=== PATIENT | female | born 1970 | race Hispanic/Latino ===

== ENCOUNTER 2018-07-31 06:46 | Emergency (ER) | payer BC, SELFPAY ==
[2018-07-31] MEDS ORDERED: NA CHLORIDE 0.9% 1,000 ML ONE (07:38)
[2018-07-31] MEDS ORDERED: ACETAMINOPHEN 500 MG TAB ONE (07:38)
[2018-07-31 07:52] LABS: Absolute Lymphocytes (CBC) 2.7 K/uL (0.7-4.9); Absolute Monocytes 0.6 K/uL (0.1-1.3); Absolute Neutrophil 2.8 K/uL (1.8-8.0); Eosinophils % 3.5 % (0-4.4); Hematocrit 41.7 % (36.0-45.0); Lymphocytes % 42.1 % (15.3-44.8); MPV 9.1 fL (7.6-11.3); Monocytes % 8.8 % (3.3-12.3); RBC Red Blood Cell Count 4.81 M/uL (3.86-4.86)
[2018-07-31 08:14] LABS: ALT/SGPT 31 U/L (12-78); AST/SGOT 26 U/L (15-37); Alkaline Phosphatase 117 U/L (45-117); BUN Blood Urea Nitrogen 11 mg/dL (7-18); Bicarbonate 29 mmol/L (21-32); Bilirubin Direct 0.1 mg/dL (0-0.2); Bilirubin Total 0.3 mg/dL (0.2-1.0); Glucose Level 87 mg/dL (74-106); Magnesium 2.5 mg/dL (1.8-2.4); Potassium 3.3 mmol/L (3.5-5.1); Protein, Total 7.9 g/dL (6.4-8.2); Sodium Level 140 mmol/L (136-145); Troponin (Emerg Dept Use Only) < 0.02 ng/mL (0.0-0.045)
--- NOTE | 2018-07-31 08:14 | RAD REPORT ---
EXAM DESCRIPTION: CT - Head Brain Wo Cont - 07/31/2018 7:48 am CLINICAL HISTORY: Blurred vision COMPARISON: None. TECHNIQUE: Computed axial tomography of the head was obtained. IV contrast was not requested. All CT scans are performed using dose optimization technique as appropriate and may include automated exposure control or mA/KV adjustment according to patient size. FINDINGS: An intracranial bleed is not seen . The ventricles are normal in caliber. No extra-axial fluid collection is noted. Fluid within the sinuses/ mastoids is not seen. IMPRESSION: No acute intracranial abnormality is seen. If patient's symptoms persist MRI of the bra in would be recommended.
--- NOTE | 2018-07-31 08:50 | ER ---
Nurse's Notes [facility] Name: Muna Aquino Age: 48 yrs Sex: Female : 1970 Arrival Date: 07/31/2018 Time: 06:48 Bed 15 Private MD: Diagnosis: Elevated blood-pressure reading, without diagnosis of hypertension;Visual disturbances Presentation: 07/31 06:59 Presenting complaint: Patient states: Pt reports blurred vision that began this morning ss when she woke up at 0000 this morning. 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 then again 161/???. Transition of care: patient was not received from another setting of care. Onset of symptoms was July 31, 2018. Risk Assessment: Do you want to hurt yourself or someone else? Patient reports no desire to harm self or others. Initial Sepsis Screen: Does the patient meet any 2 criteria? No. Patient's initial sepsis screen is negative. Does the patient have a suspected source of infection? No. Patient's initial sepsis screen is negative. Care prior to arrival: None. 06:59 Method Of Arrival: Ambulatory ss 06:59 Acuity: ADELINE 3 ss Historical: - Allergies: 07:01 No Known Allergies; ss - Home Meds: 07:01 None [Active]; ss - PMHx: 07:01 None; ss - PSHx: 07:01 ; ss - Immunization history:: Adult Immunizations up to date. - Social history:: Smoking status: Patient/guardian denies using tobacco. - Ebola Screening: : Patient denies exposure to infectious person Patient denies travel to an Ebola-affected area in the 21 days before illness onset. Screenin:07 Abuse screen: Denies threats or abuse. Denies injuries from another. Nutritional ph screening: No deficits noted. Tuberculosis screening: No symptoms or risk factors identified. Fall Risk None identified. Assessment: 07:50 General: Appears in no apparent distress. comfortable, slender, well groomed, Behavior ph is calm, cooperative, appropriate for age, Denies fever, feeling ill. Pain: Complains of pain in top of head. Neuro: Level of Consciousness is awake, alert, obeys commands, Oriented to person, place, time, situation, Gis Analyst are equal bilaterally Moves all extremities. Full function Gait is steady, Speech is normal, Facial symmetry appears normal, Facial symmetry: tongue is midline, Pupils are PERRLA, Intact Reports blurred vision headache in top of head Denies dizziness, photophobia. Cardiovascular: Capillary refill < 3 seconds in bilateral fingers Patient's skin is warm and dry. Respiratory: Airway is patent Respiratory effort is even, unlabored, Respiratory pattern is regular, symmetrical. GI: No signs and/or symptoms were reported involving the gastrointestinal system. Patient currently denies abdominal pain, nausea, vomiting. Derm: Skin is intact, is healthy with good turgor, Skin is pink, warm \T\ dry. Musculoskeletal: Circulation, motion, and sensation intact. Range of motion: intact in all extremities. 09:11 Reassessment: Patient appears in no apparent distress at this time. Patient and/or ph family updated on plan of care and expected duration. Pain level reassessed. Patient is alert, oriented x 3, equal unlabored respirations, skin warm/dry/pink. Patient denies pain at this time. Patient states feeling better. Patient states symptoms have improved. Vital Signs: 07:01 BP 180 / 101; Pulse 70; Resp 15; Temp 98.4(TE); Pulse Ox 99% on R/A; Weight 63.5 kg; ss Height 5 ft. 2 in. (157.48 cm); Pain 0/10; 07:50 BP 141 / 101; Pulse 68; Resp 18; Pulse Ox 98% on R/A; ph 08:12 BP 157 / 99; Pulse 67; Resp 18; Pulse Ox 99% on R/A; ph 09:12 BP 122 / 86; Pulse 67; Resp 18; Temp 97.9; Pulse Ox 98% on R/A; ph 07:01 Body Mass Index 25.61 (63.50 kg, 157.48 cm) Vitals: 07:50 Cardiac Rhythm Assessment Sinus rhythm. ED Course: 06:48 Patient arrived in ED. am2 07:01 Triage completed. ss 07:01 Arm band placed on right wrist. ss 07:05 Dwayne Castaneda PA is PHCP. cp 07:05 Dwayne Christianson MD is Attending Physician. cp 07:10 Letty Mcneill RN is Primary Nurse. ph 07:36 Adam Simons MD is Attending Physician. cp 07:43 Initial lab(s) drawn, by me, sent to lab. Inserted saline lock: 20 gauge in right ph antecubital area, using aseptic technique. Blood collected. 07:45 CT completed. Patient tolerated procedure well. Patient moved to CT via wheelchair. Patient moved back from CT. 07:46 XRAY Chest (1 view) In Process Unspecified. EDMS 07:48 CT Head Brain wo Cont In Process Unspecified. EDMS 08:07 Patient has correct armband on for positive identification. Placed in gown. Bed in low ph position. Call light in reach. Side rails up X 1. hog stomach preparer on. Pulse ox on. NIBP on. Door closed. Noise minimized. Warm blanket given. 09:31 No provider procedures requiring assistance completed. IV discontinued, intact, ph bleeding controlled, No redness/swelling at site. Pressure dressing applied. Administered Medications: 07:42 Drug: Tylenol 1000 mg Route: PO; ph 09:29 Follow up: Response: No adverse reaction; Pain is decreased ph 09:28 Drug: Aspirin Chewable Tablet 81 mg Route: PO; ph 09:29 Follow up: Response: No adverse reaction ph 09:30 Not Given (Other Intervention Used): NS 0.9% 1000 ml IV at 1 bolus Per protocol; 1000 ph mL bolus Outcome: 08:49 Discharge ordered by MD. cp 09:32 Discharged to home ambulatory, with significant other. ph 09:32 Condition: improved 09:32 Discharge instructions given to patient, Instructed on discharge instructions, follow up and referral plans. Demonstrated understanding of instructions, follow-up care. 09:32 Patient left the ED. ph Signatures: Dispatcher [employer] EDNY Romana Huitron RN RN Letty Mcneill RN RN Delia Gutierrez Corey, PA PA cp Moreno, Amanda am2 Corrections: (The following items were deleted from the chart) 07:47 07:34 Patient moved to [facility] 08:12 07:50 BP 157 / 99; Pulse 67bpm; Resp 18bpm; Pulse Ox 99% RA; ph ph
--- NOTE | 2018-07-31 08:51 | EDPHYS ---
Physician Documentation [facility] Name: Muna Aquino Age: 48 yrs Sex: Female : 1970 Arrival Date: 07/31/2018 Time: 06:48 Bed 15 Private MD: ED Physician Adam Simons HPI: 07/31 07:30 This 48 yrs old Female presents to ER via Ambulatory with complaints of High cp Blood Pressure, Blurred Vision, Doesn't Feel Right. 07:30 The patient has elevated blood pressure and discovered this at work. cp 07:30 Onset: The symptoms/episode began/occurred this morning. Patient reports she was at cp work this morning after working 12 hour shift and noticed she was having blurry vision, slight headache. Patient reports she checked her blood pressure at work and noticed it was elevated. Patient denies history of hypertension. Historical: - Allergies: 07:01 No Known Allergies; ss - Home Meds: 07:01 None [Active]; ss - PMHx: 07:01 None; ss - PSHx: 07:01 ; ss - Immunization history:: Adult Immunizations up to date. - Social history:: Smoking status: Patient/guardian denies using tobacco. - Ebola Screening: : Patient denies exposure to infectious person Patient denies travel to an Ebola-affected area in the 21 days before illness onset. ROS: 07:39 Constitutional: Negative for body aches, chills, fever, poor PO intake. cp 07:39 Eyes: Positive for blurry vision, Negative for discharge, pain, redness, vision loss. 07:39 ENT: Negative for drainage from ear(s), ear pain, sore throat, difficulty swallowing, difficulty handling secretions. 07:39 Cardiovascular: Negative for chest pain, edema, palpitations. 07:39 Respiratory: Negative for cough, shortness of breath, wheezing. 07:39 Abdomen/GI: Negative for abdominal pain, vomiting, diarrhea, constipation, black/tarry stool, rectal bleeding. 07:39 Back: Negative for pain at rest, pain with movement, radiated pain. 07:39 Skin: Negative for cellulitis, rash. 07:39 Neuro: Positive for headache, Negative for altered mental status, dizziness, gait disturbance, speech changes, weakness. 07:39 All other systems are negative. Exam: 07:44 Constitutional: The patient appears in no acute distress, alert, awake, cp non-diaphoretic, non-toxic, well developed, well nourished. 07:44 Head/Face: Normocephalic, atraumatic. Eyes: Pupils equal round and reactive to light, cp extra-ocular motions intact. Lids and lashes normal. Conjunctiva and sclera are non-icteric and not injected. Cornea within normal limits. Periorbital areas with no swelling, redness, or edema. ENT: Nares patent. No nasal discharge, no septal abnormalities noted. Tympanic membranes are normal and external auditory canals are clear. Oropharynx with no redness, swelling, or masses, exudates, or evidence of obstruction, uvula midline. Mucous membranes moist. Chest/axilla: Normal chest wall appearance and motion. Nontender with no deformity. No lesions are appreciated. Cardiovascular: Regular rate and rhythm with a normal S1 and S2. No gallops, murmurs, or rubs. Normal PMI, no JVD. No pulse deficits. Respiratory: Lungs have equal breath sounds bilaterally, clear to auscultation and percussion. No rales, rhonchi or wheezes noted. No increased work of breathing, no retractions or nasal flaring. Abdomen/GI: Soft, non-tender, with normal bowel sounds. No distension or tympany. No guarding or rebound. No evidence of tenderness throughout. Neuro: Awake and alert, GCS 15, oriented to person, place, time, and situation. Cranial nerves II-XII grossly intact. Motor strength 5/5 in all extremities. Sensory grossly intact. Cerebellar exam normal. Normal gait. 07:44 Musculoskeletal/extremity: Exam is negative for calf tenderness, decreased range of motion, edema, Extremities: all appear grossly normal, with no appreciated pain with palpation. 07:44 Skin: no rash present. 08:15 ECG was reviewed by the Attending Physician. cp Vital Signs: 07:01 BP 180 / 101; Pulse 70; Resp 15; Temp 98.4(TE); Pulse Ox 99% on R/A; Weight 63.5 kg; ss Height 5 ft. 2 in. (157.48 cm); Pain 0/10; 07:50 BP 141 / 101; Pulse 68; Resp 18; Pulse Ox 98% on R/A; ph 08:12 BP 157 / 99; Pulse 67; Resp 18; Pulse Ox 99% on R/A; ph 09:12 BP 122 / 86; Pulse 67; Resp 18; Temp 97.9; Pulse Ox 98% on R/A; ph 07:01 Body Mass Index 25.61 (63.50 kg, 157.48 cm) ss MDM: 07:08 Patient medically screened. cp 07:30 Differential diagnosis: hypertensive crisis, Malignant HTN, CVA, intracerebral cp hemorrhage. 08:47 Data reviewed: vital signs, nurses notes, lab test result(s), EKG, radiologic studies, cp CT scan, plain films. 08:47 Test interpretation: by ED physician or midlevel provider: ECG. cp 08:47 Counseling: I had a detailed discussion with the patient and/or guardian regarding: the cp historical points, exam findings, and any diagnostic results supporting the discharge/admit diagnosis, the presence of at least one elevated blood pressure reading (>120/80) during this emergency department visit, lab results, radiology results, the need for outpatient follow up, a family practitioner, to return to the emergency department if symptoms worsen or persist or if there are any questions or concerns that arise at home. 08:47 Response to treatment: the patient's symptoms have markedly improved after treatment, cp VSS. Blood pressure markedly improved. Will discharge to home for continued monitoring. 07/31 07:18 Order name: Basic Metabolic Panel; Complete Time: 08:18 07/31 08:18 Interpretation: Normal except: K 3.3; GFR 88. 07/31 07:18 Order name: CBC with Diff; Complete Time: 08:18 07/31 07:18 Order name: LFT's; Complete Time: 08:18 07/31 07:18 Order name: Magnesium; Complete Time: 08:18 07/31 08:18 Interpretation: MG 2.5; Reviewed. 07/31 07:18 Order name: Troponin (emerg Dept Use Only); Complete Time: 08:18 07/31 07:18 Order name: XRAY Chest (1 view); Complete Time: 09:12 07/31 09:13 Interpretation: Report review. 07/31 07:18 Order name: EKG; Complete Time: 07:38 07/31 07:18 Order name: Cardiac monitoring; Complete Time: 07:42 07/31 07:18 Order name: EKG - Nurse/Tech; Complete Time: 09:30 cp 07/31 07:18 Order name: IV Saline Lock; Complete Time: 07:42 cp 07/31 07:18 Order name: CT Head Brain wo Cont; Complete Time: 08:18 cp 07/31 08:18 Interpretation: Report reviewed. cp 07/31 07:18 Order name: Labs collected and sent; Complete Time: 07:42 cp 07/31 07:18 Order name: O2 Per Protocol; Complete Time: 07:42 cp 07/31 07:18 Order name: O2 Sat Monitoring; Complete Time: 07:43 cp EC:15 Rate is 63 beats/min. Rhythm is regular. TX interval is normal. QRS interval is normal. cp QT interval is normal. T waves are Flattened in lead aVL. Interpreted by me. Reviewed by me. Administered Medications: 07:42 Drug: Tylenol 1000 mg Route: PO; ph 09:29 Follow up: Response: No adverse reaction; Pain is decreased ph 09:28 Drug: Aspirin Chewable Tablet 81 mg Route: PO; ph 09:29 Follow up: Response: No adverse reaction ph 09:30 Not Given (Other Intervention Used): NS 0.9% 1000 ml IV at 1 bolus Per protocol; 1000 ph mL bolus Disposition: 09:45 Chart complete. cp 16:24 Co-signature as Attending Physician, Adam Simons MD I agree with the assessment and kdr plan of care. Disposition: 07/31/18 08:49 Discharged to Home. Impression: Elevated blood-pressure reading, without diagnosis of hypertension, Visual disturbances. - Condition is Stable. - Discharge Instructions: How to Take Your Blood Pressure, [id number], Aspirin and Your Heart, DASH Eating Plan, Form - Blood Pressure Record Sheet. - Family Work Release, Medication Reconciliation Form, Thank You Letter, Antibiotic Education, Prescription Opioid Use form. - Follow up: Private Physician; When: 2 - 3 days; Reason: Recheck today's complaints. - Problem is new. - Symptoms have improved. Signatures: Dispatcher [employer] EDNC Adam Simons MD MD [facility] Romana Huitron RN RN Letty Mcneill RN RN ph Tonya, MESHA Rice PA cp Corrections: (The following items were deleted from the chart) 07:32 07:32 This 48 yrs old Female presents to ER via Ambulatory with complaints of cp High Blood Pressure, Blurred Vision, Doesn't Feel Right. cp 09:32 08:49 07/31/2018 08:49 Discharged to Home. Impression: Elevated blood-pressure reading, ph without diagnosis of hypertension; Visual disturbances. Condition is Stable. Forms are Medication Reconciliation Form, Thank You Letter, Antibiotic Education, Prescription Opioid Use. Follow up: Private Physician; When: 2 - 3 days; Reason: Recheck today's complaints. Problem is new. Symptoms have improved. cp
--- NOTE | 2018-07-31 09:08 | RAD REPORT ---
EXAM DESCRIPTION: Jerry Single View07/31/2018 7:46 am CLINICAL HISTORY: Hypertension COMPARISON: none FINDINGS: The lungs appear clear of acute infiltrate. The heart is normal size IMPRESSION: No acute abnormalities displayed
[2018-07-31] MEDS ORDERED: ASPIRIN 81 MG CHEWABLE TABLET ONE (09:33)
--- NOTE | 2018-07-31 10:42 | EKG ---
Test Date: 2018-07-31 Test Time: 08:00:24 Supervisor Reclamation: MARK MEASUREMENT RESULTS: Intervals: Rate: 63 AK: 156 QRSD: 76 QT: 426 QTc: 435 Velma: P: 68 AK: 156 QRS: 64 T: 55 INTERPRETIVE STATEMENTS: Normal sinus rhythm Normal ECG No previous ECG available for comparison Electronically Signed On 07-31-18 10:41:57 CDT by Marcial Valdez
== END 2018-07-31 09:32 | disposition home or self-care (01) ==
LOC: ER 06:46
DX: R03.0 Elevated blood-pressure reading, without diagnosis of hypertension (principal); H53.9 Unspecified visual disturbance
CPT/HCPCS: 36415; 70450; 71045; 80048; 80076; 83735; 84484; 85025; 93005; 99285; J7030

== ENCOUNTER 2018-08-01 13:51 | Emergency (ER) | payer BC ==
[2018-08-01] MEDS ORDERED: DEXAMETHASONE 10 MG/ML VIAL ONE (16:33)
[2018-08-01] MEDS ORDERED: METOCLOPRAMIDE 10 MG/2mL INJ ONE (16:33)
[2018-08-01] MEDS ORDERED: DIPHENHYDRAMINE 50 MG/ML VIAL ONE (16:33)
[2018-08-01] MEDS ORDERED: NA CHLORIDE 0.9% 250 ML ONE (16:34)
--- NOTE | 2018-08-01 17:20 | ER ---
Nurse's Notes [facility] Name: Muna Aquino Age: 48 yrs Sex: Female : 1970 Arrival Date: 08/01/2018 Time: 13:51 Bed 25 Private MD: Diagnosis: Headache Presentation: 08/01 14:09 Presenting complaint: Headache and elevated blood pressure today. Home SBP 160. hb Transition of care: patient was not received from another setting of care. Onset of symptoms was August 01, 2018. Risk Assessment: Do you want to hurt yourself or someone else? Patient reports no desire to harm self or others. Care prior to arrival: None. 14:09 Method Of Arrival: Ambulatory hb 14:09 Acuity: ADELINE 3 hb 15:40 Initial Sepsis Screen: Does the patient meet any 2 criteria? No. Patient's initial ca1 sepsis screen is negative. Does the patient have a suspected source of infection? No. Patient's initial sepsis screen is negative. DIRECTOR OF MEDICAL STAFF SERVICES: 15:40 LMP N/A - Hysterectomy ca1 Historical: - Allergies: 14:10 No Known Allergies; hb - Home Meds: 14:10 None [Active]; hb - PMHx: 14:10 None; hb - PSHx: 14:10 ; hb - Immunization history:: Adult Immunizations up to date. - Social history:: Smoking status: Patient/guardian denies using tobacco. - Ebola Screening: : No symptoms or risks identified at this time. Screenin:40 Abuse screen: Denies threats or abuse. Denies injuries from another. Nutritional ca1 screening: No deficits noted. Tuberculosis screening: No symptoms or risk factors identified. Fall Risk None identified. Assessment: 15:40 General: Appears in no apparent distress. comfortable, Behavior is calm, cooperative, ca1 appropriate for age. Pain: Denies pain. Neuro: Level of Consciousness is awake, alert, obeys commands, Oriented to person, place, time, situation, Reports headache since since yesterday but not at this time. Cardiovascular: Heart tones S1 S2 present Capillary refill < 3 seconds Patient's skin is warm and dry. Respiratory: Airway is patent Respiratory effort is even, unlabored, Respiratory pattern is regular, symmetrical, Breath sounds are clear bilaterally. GI: Abdomen is flat, non-distended, Bowel sounds present X 4 quads. Abd is soft and non tender X 4 quads. : No deficits noted. No signs and/or symptoms were reported regarding the genitourinary system. EENT: No deficits noted. No signs and/or symptoms were reported regarding the EENT system. Derm: Skin is intact, is healthy with good turgor, Skin is pink, warm \T\ dry. Musculoskeletal: Circulation, motion, and sensation intact. Capillary refill < 3 seconds. 16:39 Reassessment: Patient appears in no apparent distress at this time. Patient and/or ca1 family updated on plan of care and expected duration. Pain level reassessed. Patient is alert, oriented x 3, equal unlabored respirations, skin warm/dry/pink. Vital Signs: 14:09 BP 152 / 97; Pulse 84; Resp 16; Temp 98; Pulse Ox 100% ; Pain 5/10; hb 15:40 BP 135 / 85; Pulse 64; Resp 18 S; Pulse Ox 99% on R/A; ca1 16:39 BP 134 / 104; Pulse 70; Resp 19 S; Pulse Ox 100% on R/A; ca1 17:10 BP 124 / 79; Pulse 57; Resp 19 S; Pulse Ox 100% on R/A; ca1 ED Course: 13:51 Patient arrived in ED. tw3 14:10 Triage completed. hb 14:10 Arm band placed on. hb 15:37 Lavon Alvarez PA is PHCP. jmm 15:37 Andres Singh MD is Attending Physician. jmm 15:39 Sachi Christian, KALINA is Primary Nurse. ca1 15:40 Patient has correct armband on for positive identification. Placed in gown. Bed in low ca1 position. Call light in reach. Side rails up X 1. Pulse ox on. NIBP on. Warm blanket given. 16:18 Inserted saline lock: 22 gauge in left antecubital area, using aseptic technique. ca1 16:18 No provider procedures requiring assistance completed. ca1 17:20 Braydon Unger MD is Referral Physician. jmm 17:50 IV discontinued, intact, bleeding controlled, No redness/swelling at site. Pressure ca1 dressing applied. Administered Medications: 06:23 Drug: Decadron - Dexamethasone 10 mg Route: IVP; Site: left antecubital; ca1 16:20 Drug: Reglan 10 mg Route: IVP; Site: left antecubital; ca1 16:20 Drug: NS 0.9% 250 ml Route: IV; Rate: bolus; Site: left antecubital; ca1 16:33 Drug: diphenhydrAMINE 12.5 mg Route: IVP; Site: left antecubital; ca1 Outcome: 17:20 Discharge ordered by MD. walker 17:51 Discharged to home ambulatory, with family. ca1 17:51 Condition: stable 17:51 Discharge instructions given to patient, Instructed on discharge instructions, follow up and referral plans. Demonstrated understanding of instructions, follow-up care. 17:51 Patient left the ED. ca1 Signatures: Lavon Alvarez PA PA jmm Baxter, Heather, KALINA RN Jeanette Bo tw3 Sachi Christian RN RN ca1
--- NOTE | 2018-08-01 17:20 | EDPHYS ---
Physician Documentation [facility] Name: Muna Aquino Age: 48 yrs Sex: Female : 1970 Arrival Date: 08/01/2018 Time: 13:51 Bed 25 Private MD: ED Physician Andres Singh HPI: 08/01 15:54 This 48 yrs old Female presents to ER via Ambulatory with complaints of High jmm Blood Pressure. 15:54 Onset: The symptoms/episode began/occurred gradually, 1 day(s) ago. Associated signs jmm and symptoms: Pertinent positives: headache, visual changes. This is a 48 year old female with no chronic medical conditions that presents to the ED with complaints of headache, blurred vision beginning yesterday. Patient was evaluated in the ED with negative studies. Patient is concerned because headache continues. Patient states headache was worsen yesterday. Headache was gradual onset yesterday. Patient denies chest pain, denies shortness of breath. . DIRECTOR SOCIAL WELFARE: 15:40 LMP N/A - Hysterectomy ca1 Historical: - Allergies: 14:10 No Known Allergies; hb - Home Meds: 14:10 None [Active]; hb - PMHx: 14:10 None; hb - PSHx: 14:10 ; hb - Immunization history:: Adult Immunizations up to date. - Social history:: Smoking status: Patient/guardian denies using tobacco. - Ebola Screening: : No symptoms or risks identified at this time. ROS: 15:54 Constitutional: Negative for fever, chills, and weight loss, Cardiovascular: Negative jmm for chest pain, palpitations, and edema, Respiratory: Negative for shortness of breath, cough, wheezing, and pleuritic chest pain. 15:54 Neuro: Positive for headache, visual changes. 15:54 All other systems are negative. Exam: 15:54 Constitutional: This is a well developed, well nourished patient who is awake, alert, jmm and in no acute distress. Head/Face: atraumatic. Eyes: EOMI, no conjunctival erythema appreciated ENT: Moist Mucus Membranes Neck: Trachea midline, Supple Chest/axilla: Normal chest wall appearance and motion. Cardiovascular: Regular rate and rhythm. No edema appreciated Respiratory: Normal respirations, no respiratory distress appreciated Abdomen/GI: Non distended, soft Back: Normal ROM Skin: General appearance color normal MS/ Extremity: Moves all extremities, no obvious deformities appreciated, no edema noted to the lower extremities 15:54 Neuro: Orientation: is normal, Mentation: is normal, Memory: is normal, appropriate for stated age, Gait: is steady. 15:54 Psych: Behavior/mood is pleasant, cooperative. Vital Signs: 14:09 BP 152 / 97; Pulse 84; Resp 16; Temp 98; Pulse Ox 100% ; Pain 5/10; hb 15:40 BP 135 / 85; Pulse 64; Resp 18 S; Pulse Ox 99% on R/A; ca1 16:39 BP 134 / 104; Pulse 70; Resp 19 S; Pulse Ox 100% on R/A; ca1 17:10 BP 124 / 79; Pulse 57; Resp 19 S; Pulse Ox 100% on R/A; ca1 MDM: 15:54 Patient medically screened. [facility] 17:19 Data reviewed: vital signs, nurses notes. Counseling: I had a detailed discussion with laura the patient and/or guardian regarding: the historical points, exam findings, and any diagnostic results supporting the discharge/admit diagnosis, the need for outpatient follow up, to return to the emergency department if symptoms worsen or persist or if there are any questions or concerns that arise at home. 17:19 ED course: Patient states that she feels much better and headache has almost completely jmm resolved in the ED. Character of headache does not appear consistent with SAH. patient is afebrile and non toxic in appearance. i do not suspect meningitis. patient is advised to follow up with neurology and otherwise given strict return precautions. patient understood and agrees with the plan of care. . 08/01 16:10 Order name: Saline Lock; Complete Time: 16:33 [facility] Administered Medications: 06:23 Drug: Decadron - Dexamethasone 10 mg Route: IVP; Site: left antecubital; ca1 16:20 Drug: Reglan 10 mg Route: IVP; Site: left antecubital; ca1 16:20 Drug: NS 0.9% 250 ml Route: IV; Rate: bolus; Site: left antecubital; ca1 16:33 Drug: diphenhydrAMINE 12.5 mg Route: IVP; Site: left antecubital; ca1 Disposition: 19:06 Co-signature as Attending Physician, Andres Singh MD. rn Disposition: 08/01/18 17:20 Discharged to Home. Impression: Headache. - Condition is Stable. - Discharge Instructions: Migraine Headache. - Medication Reconciliation Form, Thank You Letter, Antibiotic Education, Prescription Opioid Use form. - Follow up: Braydon Unger MD; When: 2 - 3 days; Reason: Recheck today's complaints, Continuance of care, Re-evaluation by your physician. Signatures: Lavon Alvarez PA PA jmm Nieto, Roman, MD MD rn Baxter, Heather, RN RN Sachi Christian RN RN ca1 Corrections: (The following items were deleted from the chart) 17:51 17:20 08/01/2018 17:20 Discharged to Home. Impression: Headache. Condition is Stable. ca1 Forms are Medication Reconciliation Form, Thank You Letter, Antibiotic Education, Prescription Opioid Use. Follow up: Braydon Unger; When: 2 - 3 days; Reason: Recheck today's complaints, Continuance of care, Re-evaluation by your physician. aaron
== END 2018-08-01 17:51 | disposition home or self-care (01) ==
LOC: ER 13:51
DX: R51 Headache (principal)
CPT/HCPCS: 96374; 96375; 99284; J1100; J2765

== ENCOUNTER 2023-01-13 01:00 | Emergency (ER) | payer BC, SELFPAY ==
--- OUTSIDE RECORDS SUMMARY | 2023-01-13 01:03 | XMS REPORT | Continuity of Care Document ---
:1970 Author Organization [facility] t Address [address] [place] [address] [place] [id number] Care Team Providers Name Role Phone Chapito Vu Attending Clinician Lab, [facility] Fam Pob I Attending Clinician Unavailable CHAPITO ROSS Attending Clinician Unavailable Problems This patient has no known problems. Allergies, Adverse Reactions, Alerts Allergy Allergy Status Severity Reaction(s) Onset Inactive Treating Comm ents Source Name Type Date Date Clinician NO KNOWN Drug [facility] Social History Social Habit Start Date Stop Date Quantity Comments [facility] Smoking Status Start Date Stop Date Source Unknown if ever smoked [facility] Medications This patient has no known medications. Procedures This patient has no known procedures. Encounters Start End Encounter Admission Attending Care Care Encounter Source Date/Time Date/Time Type Type Clinicians Facility Department ID 2019-10-28 2019-10-28 Telephone Vandana [facility] [id number] Univers 00:00:00 00:00:00 [facility] [id number] [facility] [place] [id number] [facility] [phone] [address] Office [address] 2019-10-27 2019-10-27 Laboratory Lab, Adc Fam Pob I [facility] [id number] [facility] 13:44:59 14:04:59 Only Chapito [facility] [id number] [facility] [place] [id number] [facility] [phone] [address] 2019-10-27 2019-10-27 Outpatient R VANDANA [facility] [id number] Univers 14:00:00 14:00:00 [facility] Results This patient has no known results.
[2023-01-13] MEDS ORDERED: LIDOCAINE 1% MPF 30 ML VIAL ONE (02:54)
[2023-01-13] MEDS ORDERED: LIDOCAINE 1% MPF 5 ML VIAL ONE (02:55)
[2023-01-13] MEDS ORDERED: LIDOCAINE 1% 20 ML MDV ONE (02:57)
--- NOTE | 2023-01-13 03:39 | ER ---
Nurse's Notes [facility] Name: Muna Aquino Age: 52 yrs Sex: Female : 1970 Arrival Date: 01/13/2023 Time: 01:00 Bed 5 Private MD: Diagnosis: Laceration without foreign body of unspecified finger without damage to nail Presentation: 01/13 01:21 Chief complaint: Patient states: laceration to 4th digit on left hand. Pt states that cm10 she cut her finger on some glass. Pt states that this happened around 2300. Bleeding controlled at this time. Pt states last tetanus was in 2018. Coronavirus screen: Vaccine status: Patient reports receiving the 2nd dose of the covid vaccine. Client denies travel out of the [place] in the last 14 days. Ebola Screen: Patient denies travel to an Ebola-affected area in the 21 days before illness onset. No symptoms or risks identified at this time. Initial Sepsis Screen: Does the patient meet any 2 criteria? No. Patient's initial sepsis screen is negative. Does the patient have a suspected source of infection? No. Patient's initial sepsis screen is negative. Risk Assessment: Do you want to hurt yourself or someone else? Patient reports no desire to harm self or others. Onset of symptoms was January 13, 2023. 01:21 Method Of Arrival: Ambulatory cm10 01:21 Acuity: ADELINE 4 cm10 Triage Assessment: 01:24 General: Appears in no apparent distress. comfortable, Behavior is calm, cooperative. cm10 Pain: Complains of pain in dorsal aspect of proximal phalanx of left ring finger and palmar aspect of middle phalanx of left ring finger. Neuro: No deficits noted. Level of Consciousness is awake, alert, obeys commands, Oriented to person, place, time, situation. Respiratory: No deficits noted. Airway is patent Respiratory effort is even, unlabored, Respiratory pattern is regular, symmetrical. Injury Description: Laceration sustained to dorsal aspect of middle phalanx of left ring finger, palmar aspect of middle phalanx of left ring finger and palmar aspect of proximal phalanx of left ring finger is jagged, was sustained 1-2 hours ago. no active bleeding noted at this time. Historical: - Allergies: :23 No Known Allergies; cm10 - Home Meds: 01:23 None [Active]; cm10 - PMHx: 01:23 None; cm10 - PSHx: 01:23 None; cm10 - Immunization history:: Adult Immunizations up to date, Last tetanus immunization: < 5 years ago. - Social history:: Smoking status: Patient denies any tobacco usage or history of. Screenin:25 [facility] ED Fall Risk Assessment (Adult) History of falling in the last 3 months, cm10 including since admission No falls in past 3 months (0 pts) Confusion or Disorientation No (0 pts) Intoxicated or Sedated No (0 pts) Impaired Gait No (0 pts) Mobility Assist Device Used No (0 pt) Altered Elimination No (0 pt) Score/Fall Risk Level 0 - 2 = Low Risk Oriented to surroundings, Maintained a safe environment, Hourly rounding (assess needs \T\ fall precautionary measures) done. Abuse screen: Denies threats or abuse. Denies injuries from another. Nutritional screening: No deficits noted. Tuberculosis screening: No symptoms or risk factors identified. Never had TB. Assessment: 01:59 General: Appears in no apparent distress. comfortable, Behavior is calm, cooperative, jb4 appropriate for age. Pain: Complains of pain in palmar aspect of middle phalanx of left ring finger and palmar aspect of proximal phalanx of left ring finger Pain does not radiate. Pain currently is 4 out of 10 on a pain scale. Neuro: Level of Consciousness is awake, alert, obeys commands, Oriented to person, place, time, situation. Cardiovascular: Patient's skin is warm and dry. Respiratory: Airway is patent Respiratory effort is even, unlabored, Respiratory pattern is regular, symmetrical. GI: No signs and/or symptoms were reported involving the gastrointestinal system. : EENT: No signs and/or symptoms were reported regarding the EENT system. Derm: Skin is pink, warm \T\ dry. Musculoskeletal: Circulation, motion, and sensation intact. Range of motion: intact in all extremities. 02:43 Reassessment: Patient appears in no apparent distress at this time. Patient and/or jb4 family updated on plan of care and expected duration. Pain level reassessed. Patient is alert, oriented x 3, equal unlabored respirations, skin warm/dry/pink. 04:04 Reassessment: Patient appears in no apparent distress at this time. Patient and/or jb4 family updated on plan of care and expected duration. Pain level reassessed. Patient is alert, oriented x 3, equal unlabored respirations, skin warm/dry/pink. Vital Signs: 01:21 BP 143 / 95; Pulse 85; Resp 18 S; Temp 97; Pulse Ox 98% on R/A; Weight 63.5 kg; Height cm10 5 ft. 1 in. ; Pain 4/10; 01:21 Body Mass Index 26.45 (63.50 kg, 154.94 cm) cm10 01:21 Pain Scale: Adult cm10 ED Course: 01:03 Patient arrived in ED. ag3 01:23 Triage completed. cm10 01:25 Arm band placed on. cm10 01:26 Wander Llanes DO is Attending Physician. ms3 01:59 Pranay Marcos, RN is Primary Nurse. jb4 02:00 Hand Left 3 View XRAY In Process Unspecified. EDMS 03:37 Reyes Aguilar DO is Referral Physician. ms3 04:04 Patient has correct armband on for positive identification. Bed in low position. Call jb4 light in reach. Side rails up X 1. Client placed on continuous cardiac and pulse oximetry monitoring. NIBP monitoring applied. 04:04 No provider procedures requiring assistance completed. Patient did not have IV access jb4 during this emergency room visit. Administered Medications: 03:15 Drug: Lidocaine Infiltration (1 %) 10 ml 20 ml Infiltration once; to bedside {Note: jb4 administered by ER physician..} Volume: 20 ml; Route: Infiltration; Medication: 04:04 VIS not applicable for this client. jb4 Outcome: 03:39 Discharge ordered by . ms3 04:04 Discharged to home ambulatory, jb4 04:04 Condition: stable 04:04 Discharge instructions given to patient, Instructed on discharge instructions, follow up and referral plans. Demonstrated understanding of instructions, follow-up care, 04:05 Patient left the ED. jb4 Signatures: Dispatcher [employer] EDMS Pranay Marcos, RN RN jb4 Lilia Kimball ag3 Wander Llanes DO DO ms3 Dea Townsend RN RN cm10 Corrections: (The following items were deleted from the chart) 01:24 01:23 Allergies: Aspirin; cm10 cm10
--- NOTE | 2023-01-13 03:39 | EDPHYS ---
Physician Documentation [facility] Name: Muna Aquino Age: 52 yrs Sex: Female : 1970 Arrival Date: 01/13/2023 Time: 01:00 Bed 5 Private MD: ED Physician Wander Llanes HPI: 01/13 02:51 This 52 yrs old Female presents to ER via Ambulatory with complaints of ms3 LACERATION TO FINGER. 02:51 52-year-old female with no past medical history presents for left ring finger ms3 laceration that occurred 2 hours prior to arrival. Patient states she cut her finger on a glass bottle while trying to leave a house. Patient states her discomfort is a 4/10. Patient denies any alleviating or inciting factors. Patient states her last tetanus shot was in 2019.. Historical: - Allergies: : No Known Allergies; cm10 - Home Meds: : None [Active]; cm10 - PMHx: : None; cm10 - PSHx: :23 None; cm10 - Immunization history:: Adult Immunizations up to date, Last tetanus immunization: < 5 years ago. - Social history:: Smoking status: Patient denies any tobacco usage or history of. ROS: 02:51 Constitutional: Negative for fever, and chills. ENT: Negative for injury, pain, and ms3 discharge, Cardiovascular: Negative for chest pain, and palpitations. Respiratory: Negative for shortness of breath, cough, wheezing, and pleuritic chest pain, Abdomen/GI: Negative for abdominal pain, nausea, vomiting, diarrhea, and constipation, MS/Extremity: Negative for injury and deformity, 02:51 Skin: Positive for laceration(s), of the dorsal aspect of middle phalanx of left ring finger, 02:51 All other systems are negative, Exam: 02:51 Constitutional: This is a well developed, well nourished patient who is awake, alert, ms3 and in no acute distress. Head/Face: Normocephalic, atraumatic. Neck: Trachea midline, no cervical lymphadenopathy. Supple, full range of motion without nuchal rigidity, or vertebral point tenderness. No Meningismus. Chest/axilla: Normal chest wall appearance and motion. Nontender with no deformity. Cardiovascular: Regular rate and rhythm with a normal S1 and S2. No gallops, murmurs, or rubs. Normal PMI, no JVD. No pulse deficits. Respiratory: Lungs have equal breath sounds bilaterally, clear to auscultation and percussion. No rales, rhonchi or wheezes noted. No increased work of breathing, no retractions or nasal flaring. Abdomen/GI: Soft, non-tender, with normal bowel sounds. No distension or tympany. No guarding or rebound. No evidence of tenderness throughout. 02:51 Skin: injury, laceration(s), the wound is approximately 3 cm(s), of the palmar aspect of proximal phalanx of left ring finger, the second wound is approximately 4 cm(s), of the dorsal aspect of middle phalanx of left ring finger, Vital Signs: 01:21 BP 143 / 95; Pulse 85; Resp 18 S; Temp 97; Pulse Ox 98% on R/A; Weight 63.5 kg; Height cm10 5 ft. 1 in. ; Pain 10; 01:21 Body Mass Index 26.45 (63.50 kg, 154.94 cm) cm10 01:21 Pain Scale: Adult cm10 Laceration: 03:42 Wound Repair of 3cm ( 1.2in ) subcutaneous laceration to palmar aspect of proximal ms3 phalanx of left ring finger. Distal neuro/vascular/tendon intact. Anesthesia: Digital block administered with 4 mls of 1% lidocaine. Wound prep: Simple cleansing by me. Skin closed with 3 5-0 Prolene using simple sutures and sterile technique. Dressed with Bacitracin. Patient tolerated well. 03:42 Wound Repair of 4cm ( 1.6in ) subcutaneous laceration to dorsal aspect of middle ms3 phalanx of left ring finger. Irregularly shaped.. Distal neuro/vascular/tendon intact. Anesthesia: Digital block administered with 4 mls of 1% lidocaine. Wound prep: Simple cleansing by me. Skin closed with 5 5-0 Prolene using interrupted sutures. Dressed with Bacitracin. Patient tolerated well. MDM: 01:36 Patient medically screened. ms3 02:40 Independent interpretation of the following test(s) in the Emergency Department X-Ray: ms3 My interpretation is Left hand x-rays reviewed by me do not reveal ROFB. 02:51 Differential diagnosis: Laceration versus retained radiopaque foreign body. ms3 03:42 Data reviewed: vital signs, nurses notes, radiologic studies, and as a result, I will ms3 discharge patient. Counseling: I had a detailed discussion with the patient and/or guardian regarding the historical points, exam findings, and any diagnostic results supporting the discharge/admit diagnosis, radiology results, the need for outpatient follow up, to return to the emergency department if symptoms worsen or persist or if there are any questions or concerns that arise at home. Response to treatment: the patient's symptoms have markedly improved after treatment, and as a result, I will discharge patient. ED course: Patient's laceration sutured without complications. Patient to follow-up with primary care physician in 7 to 10 days for suture removal. Patient understands and agrees with plan. All questions were answered. Return precautions discussed include worsening symptoms, drainage, swelling, erythema, or any other concerns.. 01/13 01:37 Order name: Hand Left 3 View XRAY ms3 01/13 02:41 Order name: Dressing - Wound; Complete Time: 03:37 ms3 01/13 02:41 Order name: Gloves, Sterile; Complete Time: 02:47 ms3 01/13 02:41 Order name: Prolene, Sutures: 5-0; Complete Time: 02:47 ms3 01/13 02:41 Order name: Setup Suture Tray; Complete Time: 02:47 ms3 Administered Medications: 03:15 Drug: Lidocaine Infiltration (1 %) 10 ml 20 ml Infiltration once; to bedside {Note: jb4 administered by ER physician..} Volume: 20 ml; Route: Infiltration; Disposition Summary: 01/13/23 03:39 Discharge Ordered Notes: Location: Home ms3 Condition: Stable ms3 Diagnosis - Laceration without foreign body of unspecified finger without damage to nail ms3 Followup: ms3 - With: Reyes Aguilar DO - When: 7 - 10 days - Reason: Staple/Suture removal Discharge Instructions: - Discharge Summary Sheet ms3 - Laceration Care, Adult ms3 Forms: - Medication Reconciliation Form ms3 - Thank You Letter ms3 - Antibiotic Education ms3 - Prescription Opioid Use ms3 - Patient Portal Instructions ms3 - Leadership Thank You Letter ms3 Signatures: Dispatcher [facility] Pranay Dia RN RN jb4 Wander Llanes DO DO ms3 Dea Townsend RN RN cm10 Corrections: (The following items were deleted from the chart) 01:24 01:23 Allergies: Aspirin; cm10 cm10 03:46 02:51 52-year-old female with no past medical history presents for left ring finger ms3 laceration that occurred 2 hours prior to arrival. Patient states she cut her finger on a glass bottle while trying to leave a house. Patient states her discomfort is a 4/10. Patient denies any alleviating or inciting factors. ms3
[2023-01-13 04:09] VITALS: BP 143/95; TEMP 97; O2SAT 98
--- NOTE | 2023-01-15 15:19 | RAD REPORT ---
EXAM DESCRIPTION: Hand Left 3 View CLINICAL HISTORY: 52 years Female laceration 4th digit TECHNIQUE: Three x-ray views of the left hand were performed on 01/13/2023 at 1:53 AM. COMPARISON: None FINDINGS: There is no evidence of fracture or dislocation. There is no significant arthritis or dege nerative change. No focal lytic or sclerotic bone lesions are seen. Bone mineralization is normal. No acute soft tissue abnormalities are identified. There is no evidence of subcutaneous emphysema or radiopaque foreign body. IMPRESSION: No evidence of acute osseous or definite soft tissue injury involving the left hand. Electronically signed by: Tatiana Galvan DO 01/13/2023 2:39 AM CDT Due to temporary technical issues with the PACS/Fluency reporting system, reports are being signed by the in house radiologist without review as a courtesy to ensure prompt reporting. The interpreting r adiologist is fully responsible for the content of the report.
== END 2023-01-13 04:05 | disposition home or self-care (01) ==
LOC: ER 01:00
PROC: 0HQGXZZ Repair Left Hand Skin, External Approach (ICD-10-PCS; principal; 2023-01-13)
DX: S61.215A Laceration without foreign body of left ring finger without damage to nail, initial encounter (principal)
CPT/HCPCS: 99283; J2001